=== PATIENT | female | born 2005 | race Caucasian/White ===

== ENCOUNTER 2025-08-18 15:13 | Emergency (ER) | payer MEDICAID ==
[~2025-08-18] VITALS: Ht 157.5 cm; Wt 55.0 kg
[2025-08-18 15:18] VITALS: O2SAT 98
[2025-08-18 17:09] LABS: CLARITY URINE CLEAR (CLEAR); COLOR URINE YELLOW (YELLOW); GLUCOSE URINE NEGATIVE (NEGATIVE); KETONES URINE 2+ (NEGATIVE); LEUKOCYTE ESTERASE URINE NEGATIVE (NEGATIVE); NITRITE URINE NEGATIVE (NEGATIVE); OCCULT BLOOD URINE NEGATIVE (NEGATIVE); PH URINE 5.5 (4.5-8.0); PROTEIN URINE NEGATIVE (NEGATIVE); SPECIFIC GRAVITY URINE 1.017 (1.005-1.030); UROBILINOGEN URINE 0.2 E.U./dL (0.2-1.0)
[2025-08-18] MEDS ORDERED: CEPH500C2 MT (18:10)
[2025-08-18] MEDS: CEFTRIAXONE SODIUM 500MG VIAL IM ONE (18:24)
[2025-08-18] MEDS: LIDOCAINE HCL 1% 20ML VIAL INFIL ONE (18:24)
[2025-08-18 18:25] VITALS: BP 111/59; PULSE 60; RESP 15; TEMP 36.7; O2SAT 99
[2025-08-21 04:10] LABS: CHLAMYDIA TRACHOMATIS NAA Negative (Negative); NEISSERIA GONORRHOEAE NAA Negative (Negative)
== END 2025-08-18 18:27 | disposition home or self-care (01) ==
LOC: ER 15:13
DX: N89.8 Other specified noninflammatory disorders of vagina (principal); Z11.3 Encounter for screening for infections with a predominantly sexual mode of transmission
CPT/HCPCS: 99283; 87491; 87591; 81003; 96372; J0696